=== PATIENT | male | born 1980 | race African-American/Black ===

== ENCOUNTER 2018-12-11 23:18 | Emergency (ER) | payer MEDICAID ==
[~2018-12-11] VITALS: Ht 180.3 cm; Wt 84.0 kg
[2018-12-12] MEDS ORDERED: AMOXICILLIN 500 MG CAPSULE PO ONE (00:30)
[2018-12-12] MEDS ORDERED: ONDANSETRON 4MG ODT PO ONE (00:30)
[2018-12-12] MEDS ORDERED: MORPHINE SULFATE 10 MG/ML CPJ IM ONE (00:30)
[2018-12-12 00:58] VITALS: BP 135/78
== END 2018-12-12 00:59 | disposition home or self-care (01) ==
LOC: ER 23:51
DX: K04.7 Periapical abscess without sinus (principal)
CPT/HCPCS: 96372; 99283; J2270; Q0162